=== PATIENT | male | born 1990 | race Caucasian/White ===

== ENCOUNTER 2021-02-21 05:34 | Emergency (ER) | payer SELFPAY ==
[2021-02-21 05:43] VITALS: BP 125/72; PULSE 52; RESP 16; TEMP 36.7; O2SAT 99; BMI 38.5
[2021-02-21] MEDS: ondansetron 2 mg/ML SDV 2 mL 4 MG IVP (05:57)
[2021-02-21] MEDS: sodium chloride 0.9% 1,000 ML 999 ML IV (05:57)
[2021-02-21] MEDS: morphine 4 mg/mL SDV 1 mL IVP (05:59)
[2021-02-21 06:03] LABS: Basophils # 0.1 10^3/uL (0.0-0.1); Basophils % 0.6 %; Eosinophils # 0.1 10^3/uL (0.0-0.8); Eosinophils % 1.7 %; Hematocrit 46.1 % (42.0-52.0); Lymphocytes # 2.5 10^3/uL (0.8-4.8); Mean Corpuscular HGB Conc 32.5 g/dL (30.0-36.0); Mean Corpuscular Hemoglobin 29.3 pg (28.0-34.0); Mean Platelet Volume 8.7 fL (7.4-10.4); Monocytes # 0.6 10^3/uL (0.2-0.9); Monocytes % 7.9 %; Neutrophils # 4.73 10^3/uL (1.8-7.7); Neutrophils % 58.3 %; Nucleated Red Blood Cells % 0 %; Platelet Count 253 10^3/cmm (130-400); Red Blood Count 5.12 10^6/uL (4.1-5.3); Red Cell Distribution Width 12.6 % (12.1-15.1); White Blood Count 8.1 10^3/uL (4.0-10.0)
--- NOTE | 2021-02-21 06:13 | ED_ITS ---
HPI - Abdominal Pain General: Chief Complaint: Abdominal Pain Stated Complaint: Gall Bladder Stones Time Seen by Provider: 02/21/21 05:51 History of Present Illness: HPI narrative: This patient is a 30-year-old male with known history of gallbladder disease presents to the emergency department right upper quadrant abdominal pain nausea. Patient states he has had this issue for going home several months but has never followed up with general surgery. Will do medical evaluation treat as needed. MD elicited complaint: abdominal pain Onset (ago): hour(s) Pain Consistency: constant Location: RUQ Associated Symptoms: Reports nausea; Denies chills, dysuria, fever(s) and vomiting Review of Systems General: Reports: 10 or more systems reviewed and unremarkable except in HPI and below Const: Denies: fever(s), chills, body aches or fatigue Eyes: Denies: change in vision or blurry vision ENMT: Denies: throat pain, hoarseness or mouth pain Card: Denies: chest pain, palpitations, irregular heart rhythm, edema, swelling of feet/ankles or lightheadedness Resp: Denies: dyspnea, productive cough, non-productive cough, wheezing or pain on inspiration GI: Reports: abdominal pain and nausea; Denies: vomiting : Denies: flank pain, dysuria, urinary frequency, urinary urgency or urinary hesitancy Musc: Denies: neck pain, back pain, extremity pain, extremity swelling, joint pain, joint swelling, joint redness, joint warmth or limited range of motion Skin/Breast: Denies: rash, pruritus, erythema or skin tenderness Neuro: Denies: headache(s), numbness in extremities or weakness in extremities Psych: Denies: anxiety or depression Physical Exam Const: COMMON NORMALS: no acute distress, average body habitus, patient oriented x3, no limitations, healthy appearing, alert and well nourished HENMT: COMMON NORMALS: normocephalic, atraumatic, hearing grossly normal bilaterally, external ears normal, EAC's normal, TM's normal bilaterally, Normal external nose present, Normal nasal mucous membranes and turbinates present, moist oral mucous membranes, oropharynx normal, dentition normal and gingiva normal HEAD & SCALP: normocephalic and atraumatic NOSE: Normal external nose present and Normal nasal mucous membranes and turbinates present EXTERNAL EAR: Yes external ears normal EXTERNAL AUDITORY CANAL: EAC's normal TYMPANIC MEMBRANE: TM's normal bilaterally Neck/C-Spine: COMMON NORMALS: full ROM, no lymphadenopathy, supple, no meningeal signs, no JVD, Thyroid normal and No carotid bruits THYROID: Thyroid normal Chest: COMMONS NORMALS: normal inspection of the chest, normal palpation of entire chest wall, normal inspection of the breasts and normal palpation of the breasts Breast/axilla inspection: Yes normal inspection of the breasts BREAST/AXILLA PALPATION: Yes normal palpation of the breasts Resp: COMMON NORMALS: normal respiratory effort, No retractions, No use of accessory muscles, clear to auscultation bilaterally and percussion normal AUSCULTATION: clear to auscultation bilaterally PERCUSSION: percussion normal Cardio: COMMON NORMALS: no JVD, regular rate, regular rhythm, S1 normal heart sound present, S2 normal heart sound present, No gallops present (Cardio), No clicks present (Cardio), No murmurs present (Cardio), No rub (Cardio) and Peripheral pulses 2+ throughout RATE: regular rate RHYTHM: regular rhythm HEART SOUNDS: S1 normal heart sound present and S2 normal heart sound present PERIPHERAL PULSES: Peripheral pulses 2+ throughout GI: COMMON NORMALS: Normal to inspection, nondistended, normoactive bowel sounds present, Soft to palpation, non-tender, No hepatosplenomegaly present, no masses and no bruits PALPATION: Yes Soft to palpation, Yes Tenderness to palpation present (GI) Details: RUQ and Yes No hepatosplenomegaly present : COMMON NORMALS: Yes no CVA tenderness BLADDER/KIDNEY EXAM: Yes no CVA tenderness Back/Pelvis: COMMON NORMALS: no CVA tenderness, thoracic and lumbar spine normal to inspection, no thoracic nor lumbar tenderness, thoraco-lumbar ROM normal and straight leg raise negative bilaterally Extremity: COMMON NORMALS: normal to inspection, full ROM, capillary refill normal, no joint enlargement, no clubbing, cyanosis or edema, no calf tenderness and no pedal edema Neuro: COMMON NORMALS: patient oriented x3 SENSORIUM/ORIENTATION: Yes alert MENINGEAL SIGNS: Yes no meningeal signs Course Reevaluation(s): Reevaluation #1: Patient is much improved with complete pain resolution. No more nausea vomiting. Ultrasound showed the patient had quite a bit of gallstones in the gallbladder and the neck of the gallbladder. But none in the common bile duct or the cystic duct. Patient also has normal labs. Discussed at length with patient and family about avoiding greasy and fatty foods. Basically the brat diet clear liquid diet. Follow-up with Dr. Glover general surgery for outpatient and possible elective gallbladder removal. Patient and family state understanding Time: 08:30 Vital Signs: Vital signs: Vital Signs Temperature 98.1 F 02/21/21 05:43 Pulse Rate 62 02/21/21 08:25 Respiratory Rate 17 02/21/21 08:25 Blood Pressure 101/60 02/21/21 08:25 Pulse Oximetry 99 02/21/21 08:25 MDM - Abdominal Pain MDM Narrative: Medical decision making narrative: Patient is much improved with complete pain resolution. No more nausea vomiting. Ultrasound showed the patient had quite a bit of gallstones in the gallbladder and the neck of the gallbladder. But none in the common bile duct or the cystic duct. Patient also has normal labs. Discussed at length with patient and family about avoiding greasy and fatty foods. Basically the brat diet clear liquid diet. Follow-up with Dr. Glover general surgery for outpatient and possible elective gallbladder removal. Patient and family state understanding Lab Data: Labs: Lab Results 02/21/21 02/21/21 02/21/21 Range/Units 05:40 05:40 05:48 WBC 8.1 (4.0-10.0) 10^3/ uL RBC 5.12 (4.1-5.3) 10^6/u L Hgb 15.0 (11.7-16.6) g/dL Hct 46.1 (42.0-52.0) % MCV 90.0 (80-94) fL MCH 29.3 (28.0-34.0) pg MCHC 32.5 (30.0-36.0) g/dL RDW 12.6 (12.1-15.1) % Plt Count 253 (130-400) 10^3/c mm MPV 8.7 (7.4-10.4) fL Neut % (Auto) 58.3 % Lymph % (Auto) 31.0 % Huntington % (Auto) 7.9 % Eos % (Auto) 1.7 % Baso % (Auto) 0.6 % Neut # (Auto) 4.73 (1.8-7.7) 10^3/u L Lymph # (Auto) 2.5 (0.8-4.8) 10^3/u L Huntington # (Auto) 0.6 (0.2-0.9) 10^3/u L Eos # (Auto) 0.1 (0.0-0.8) 10^3/u L Baso # (Auto) 0.1 (0.0-0.1) 10^3/u L Nucleated RBC % (a uto) 0 % Nucleated RBCs # 0.0 /100WBC Sodium 142 (136-145) mmol/L Potassium 3.7 (3.5-5.1) mmol/L Chloride 106 (98-107) mmol/L Carbon Dioxide 25 (22-29) mmol/L Anion Gap 14.7 (5-19) BUN 16 (6-20) mg/dL Creatinine 1.1 (0.7-1.2) mg/dL GFR Calculation 78.1 L (90-130) mL/min Glucose 138 H (65-115) mg/dL Calculated Osmolal ity 297 H (285-295) mOsm/k g Calcium 8.4 L (8.5-10.5) mg/dL Total Bilirubin 0.4 (0.15-1.2) mg/dL AST 21 (0-40) U/L ALT 25 (0-41) U/L Alkaline Phosphata se 75 (40-130) IU/L Troponin T Baselin e 6 (0-15) ng/L C-Reactive Protein 2.3 (0.0-4.9) mg/L Total Protein 6.9 (6.6-8.7) g/dL Albumin 4.3 (3.5-5.2) g/dL Globulin 2.6 (1.3-4.6) g/dL Lipase 52 (13-60) U/L Urine Color (Yellow) Urine Appearance (CLEAR) Urine pH (5-7) Ur Specific Gravit y (1.005-1.030) Urine Protein (Negative) Urine Glucose (UA) (Normal) Urine Ketones (Negative) Urine Blood (Negative) Urine Nitrate (Negative) Urine Bilirubin (Negative) Urine Urobilinogen (Negative) mg/dL Ur Leukocyte Rhianna ase (Negative) 02/21/21 Range/Units 07:30 WBC (4.0-10.0) 10^3/ uL RBC (4.1-5.3) 10^6/u L Hgb (11.7-16.6) g/dL Hct (42.0-52.0) % MCV (80-94) fL MCH (28.0-34.0) pg MCHC (30.0-36.0) g/dL RDW (12.1-15.1) % Plt Count (130-400) 10^3/c mm MPV (7.4-10.4) fL Neut % (Auto) % Lymph % (Auto) % Huntington % (Auto) % Eos % (Auto) % Baso % (Auto) % Neut # (Auto) (1.8-7.7) 10^3/u L Lymph # (Auto) (0.8-4.8) 10^3/u L Huntington # (Auto) (0.2-0.9) 10^3/u L Eos # (Auto) (0.0-0.8) 10^3/u L Baso # (Auto) (0.0-0.1) 10^3/u L Nucleated RBC % (a uto) % Nucleated RBCs # /100WBC Sodium (136-145) mmol/L Potassium (3.5-5.1) mmol/L Chloride (98-107) mmol/L Carbon Dioxide (22-29) mmol/L Anion Gap (5-19) BUN (6-20) mg/dL Creatinine (0.7-1.2) mg/dL GFR Calculation (90-130) mL/min Glucose (65-115) mg/dL Calculated Osmolal ity (285-295) mOsm/k g Calcium (8.5-10.5) mg/dL Total Bilirubin (0.15-1.2) mg/dL AST (0-40) U/L ALT (0-41) U/L Alkaline Phosphata se (40-130) IU/L Troponin T Baselin e (0-15) ng/L C-Reactive Protein (0.0-4.9) mg/L Total Protein (6.6-8.7) g/dL Albumin (3.5-5.2) g/dL Globulin (1.3-4.6) g/dL Lipase (13-60) U/L Urine Color Dark yellow (Yellow) Urine Appearance Clear (CLEAR) Urine pH 5 (5-7) Ur Specific Gravit y 1.030 (1.005-1.030) Urine Protein Neg (Negative) Urine Glucose (UA) Norm (Normal) Urine Ketones Negative (Negative) Urine Blood Neg (Negative) Urine Nitrate Negative (Negative) Urine Bilirubin 1+ H (Negative) Urine Urobilinogen 1 H (Negative) mg/dL Ur Leukocyte Rhianna ase Negative (Negative) EKG Data ^: EKG 1: Attestation: I personally reviewed and interpreted this EKG as follows: EKG interpretation date: 02/21/21 EKG interpretation time: 06:24 Prior EKG tracings: not available for review Interpretation: Sinus bradycardia heart rate 54 nonspecific EKG changes Discharge Plan Discharge Patient Disposition: Home Clinical Impression: Cholelithiasis, Abdominal pain, acute, right upper quadrant, Nausea & vomiting Condition: Stable Prescriptions: New diclofenac sodium 75 mg tablet,delayed release (DR/EC) 75 mg PO BID PRN (Reason: pain) Qty: 20 RF: 0 ondansetron 4 mg tablet,disintegrating 4 mg PO DAILY PRN (Reason: nausea and vomiting) 4 Days Qty: 10 RF: 0 Discharge Orders: Discharge ED (Routine); Ordered 02/21/21 Ordered By: Rahul Cardenas Referrals: Garcia Glover MD [Physician] - Discharge Diet: Clear Liquid Discharge Activity: Increase activity as tolerated Patient Instructions: Abdominal Pain (ED), Opioid Safety Activity Restrictions/Additional Instructions: Encourage p.o. fluids. Maintain a clear liquid diet. Follow-up with general surgery Dr. Glover for outpatient evaluation and possible outpatient gallbladder removal. Take medications as instructed return to the emergency department if symptoms fail to improve or worsen Coding Level of Care Code ED [employer] for Chg Fwd Exam Comprehensive
[2021-02-21] MEDS: ketorolac 30 mg/mL INJ 15 MG IVP (06:22)
--- NOTE | 2021-02-21 06:27 | USR_ITS ---
PROCEDURE INFORMATION: Exam: US Abdomen, Limited; Right Upper Quadrant Exam date and time: 02/21/2021 6:27 AM Age: 30 years old Clinical indication: Abdominal pain; Additional info: Ruq pain TECHNIQUE: Imaging protocol: US abdomen. Real time ultrasound with image documentation. Limited exam focused on the right upper quadrant. COMPARISON: No relevant prior studies available. FINDINGS: Liver: The liver is normal in size. Increased echogenicity consistent with steatosis. No focal lesions identified. Main portal vein patent with flow toward the liver. Gallbladder: The gallbladder is somewhat distended measuring 9.5 x 3.5 cm in long axis. Echogenic debris/stones noted at the gallbladder neck. No abnormal wall thickening or pericholecystic fluid. Sonographic Maxwell sign reported absent. Common bile duct: The common duct measures 5 mm in caliber near the sammy hepatis; distal common bile duct obscured by bowel gas. No intrahepatic biliary ductal dilatation. Pancreas: Visualized pancreas unremarkable. Tail obscured by bowel gas. Right kidney: Right kidney measures 13.1 by 5.2 x 5.8 cm with normal cortical thickness and echogenicity. No hydronephrosis. No visualized stones or lesions. Grossly normal Doppler of the renal hilum. Aorta: Visualized aorta normal in caliber. Inferior vena cava: Visualized IVC normal in caliber. US/US gall bladder [id number] IMPRESSION: 1. Cholelithiasis with no sonographic evidence of acute cholecystitis. 2. Hepatic steatosis.
[2021-02-21 06:52] LABS: Alanine Aminotransferase 25 U/L (0-41); Albumin Level 4.3 g/dL (3.5-5.2); Alkaline Phosphatase 75 IU/L (40-130); Anion Gap 14.7 (5-19); Aspartate Amino Transferase 21 U/L (0-40); Blood Urea Nitrogen 16 mg/dL (6-20); C Reactive Protein 2.3 mg/L (0.0-4.9); Calcium 8.4 mg/dL (8.5-10.5); Carbon Dioxide 25 mmol/L (22-29); Chloride 106 mmol/L (98-107); Globulin 2.6 g/dL (1.3-4.6); Glomerular Filtration Rate 78.1 mL/min (90-130); Glucose 138 mg/dL (65-115); Lipase 52 U/L (13-60); Osmolality Calculated 297 mOsm/kg (285-295); Potassium 3.7 mmol/L (3.5-5.1); Sodium 142 mmol/L (136-145); Total Bilirubin 0.4 mg/dL (0.15-1.2); Total Protein 6.9 g/dL (6.6-8.7)
[2021-02-21 07:05] VITALS: BP 103/58; PULSE 58; RESP 17; O2SAT 98
--- NOTE | 2021-02-21 07:09 | PC.NURSE ---
Ultrasound at bedside.
[2021-02-21 07:42] LABS: Troponin(5th) Baseline 6 ng/L (0-15)
--- NOTE | 2021-02-21 07:43 | PC.NURSE ---
US complete. Urine collected. Patient resting comfortably, at bedside.
[2021-02-21 07:47] LABS: Add Urine Microscopic? NO; Charge for UA Resulting for Rev
[2021-02-21 07:57] LABS: Bilirubin Urine 1+ (Negative); Blood Urine Neg (Negative); Glucose Urine UA Norm (Normal); Ketones Urine Negative (Negative); Leukocyte Esterase Urine Negative (Negative); Nitrate Urine Negative (Negative); Protein Urine Neg (Negative); Urine Appearance Clear (CLEAR); Urine Color Dark Yellow (Yellow); Urobilinogen Urine 1 mg/dL (Negative); pH Urine 5 (5-7)
[2021-02-21 08:25] VITALS: BP 101/60; PULSE 62; RESP 17; O2SAT 99
[2021-02-21 08:45] VITALS: BP 111/70; PULSE 55; RESP 18; O2SAT 99
== END 2021-02-21 08:45 | disposition home or self-care (01) ==
PROVIDERS: Emergency Medicine; Emergency Provider Emergency Medicine
DX: K80.20 Calculus of gallbladder without cholecystitis without obstruction (principal); R11.2 Nausea with vomiting, unspecified
CPT/HCPCS: 76705; 80053; 81003; 83690; 84484; 85025; 86140; 96361; 96374; 96375; 99284; J1885; J2270; J2405; J7030

== ENCOUNTER 2023-03-09 15:44 | Outpatient (CLI) | payer OTHER, SELFPAY ==
--- NOTE | 2023-03-09 | XR_ITS ---
WS: [id number] Chest 2 views, 03/09/2023 Clinical Data: SHORTNESS OF BREATH Comparison: None. Findings: No nodules, masses or effusions are seen. The heart is normal. The pulmonary vascularity is not increased. No pneumonia or pneumothorax is seen. XR/XR chest 2V* [id number] Impression: Negative chest.
== END 2023-03-09 15:45 | disposition home or self-care (01) ==
PROVIDERS: PCP Family Medicine; Visit Provider Family Medicine
DX: R06.02 Shortness of breath (principal)
CPT/HCPCS: 71046

== ENCOUNTER 2023-04-11 15:45 | Outpatient (CLI) | payer OTHER, SELFPAY | END 2023-04-11 15:46 | disposition home or self-care (01) | LOC: SLEEP 04-12 12:20 | PROVIDERS: PCP Family Medicine; Visit Provider Family Medicine | DX: G47.33 Obstructive sleep apnea (adult) (pediatric) (principal); G47.36 Sleep related hypoventilation in conditions classified elsewhere; R53.83 Other fatigue; R06.83 Snoring; E66.9 Obesity, unspecified; Z68.41 Body mass index [BMI] 40.0-44.9, adult | CPT/HCPCS: G0399 ==

== ENCOUNTER 2023-05-08 20:00 | Outpatient (CLI) | payer OTHER, SELFPAY | END 2023-05-08 20:01 | disposition home or self-care (01) | LOC: SLEEP 05-09 05:45 | PROVIDERS: PCP Family Medicine; Visit Provider Family Medicine | DX: G47.33 Obstructive sleep apnea (adult) (pediatric) (principal); R53.83 Other fatigue; R06.83 Snoring; Z68.41 Body mass index [BMI] 40.0-44.9, adult | CPT/HCPCS: 95811 ==

== ENCOUNTER 2025-08-19 14:00 | Outpatient (CLI) | payer OTHER, SELFPAY | END 2025-08-19 14:01 | disposition home or self-care (01) | PROVIDERS: PCP Family Medicine; Visit Provider Family Medicine | DX: R06.02 Shortness of breath (principal) | CPT/HCPCS: 94010; 94726; 94729 ==